=== PATIENT | female | born 1935 | race Caucasian/White ===

== ENCOUNTER → 2016-05-27 | Outpatient (CLI) | payer OTHER, MEDICARE ==
[~2016-05-27] MED LIST: CLC100X PO; SERT25TA PO; THIA100T13 PO
--- NOTE | 2016-05-27 14:54 | DIAGNOSTIC IMAGING REPORT ---
RIGHT FIRST TOE 3 VIEWS CLINICAL HISTORY: Right first toe injury and pain. COMPARISON STUDY: Right first toe 07/20/2015. FINDINGS: No acute fracture or dislocation within the right first toe. The bones are osteopenic. Faint band of sclerosis along the mid aspect of the distal phalanx of the first toe is consistent with an old, healed fracture. Mild soft tissue swelling within the first toe. IMPRESSION: Old, healed fracture within the distal phalanx of the right first toe. No acute fracture or dislocation. Electronically signed by: Yuriy Artis M.D. 05/27/2016 2:52 PM Dictated Date/Time: 05/27/2016 2:49 PM
--- NOTE | 2016-05-27 15:02 | DIAGNOSTIC IMAGING REPORT ---
LUMBAR SPINE 5 VIEWS CLINICAL HISTORY: Low back pain of several months duration. FINDINGS: Five views of the lumbar spine are compared to study dated 11/24/2015. The skeletal structures are osteopenic. There is a mild superior endplate compression deformity of L4. The degree of collapse is modestly increased from the 11/24/2015 examination. No large retropulsed fragments are seen. Vertebral body height is otherwise maintained throughout the lumbar spine. Alignment is preserved. Anterior osteophytes are seen throughout. The transverse and spinous processes are intact. There is no evidence of spondylolysis. Moderate to advanced facet arthropathy is present in the mid to lower lumbar spine. Moderate degenerative disc space narrowing is seen at L4-L5 and L5-S1. Mild disc space narrowing is seen at the remaining lumbar levels. The bony pelvis is intact as visualized. Mild sclerotic change is seen in the sacroiliac joints. There is a nonobstructed abdominal bowel gas pattern. The lung bases are clear as imaged. Atherosclerotic calcification is noted in the abdominal aorta. IMPRESSION: 1. No acute bony abnormality is seen involving the lumbosacral spine. 2. There is a mild superior endplate compression deformity of L4. The degree of collapse has modestly increased from the 11/24/2015 examination. No retropulsed fragments are identified. 3. Osteopenia and lumbosacral spondylosis as above. Dictated: 05/27/2016 2:47 PM Transcribed: 05/27/2016 3:01 PM [place] Electronically signed by: Kai Rojas M.D. 05/27/2016 3:42 PM Dictated Date/Time: 05/27/2016 2:47 PM
== END | disposition home or self-care (01) ==
LOC: C.RADBC 13:39
PROVIDERS: ATTEND Family Medicine
DX: M79.674 Pain in right toe(s) (principal); M54.32 Sciatica, left side; M47.897 Other spondylosis, lumbosacral region; M85.88 Other specified disorders of bone density and structure, other site; Z87.828 Personal history of other (healed) physical injury and trauma

== ENCOUNTER → 2016-08-08 | Outpatient (CLI) | payer OTHER, MEDICARE ==
--- NOTE | 2016-08-08 10:03 | DIAGNOSTIC IMAGING REPORT ---
LEFT HIP UNILATERAL 2 VIEWS CLINICAL HISTORY: Left hip pain. COMPARISON: Pelvis radiograph November 24, 2015. FINDINGS: Alignment of the left hip is anatomic. There is no acute fracture or suspicious lesion. There is no evidence for avascular necrosis within the left femoral head. Left hip joint space is preserved. There is mild osteophytosis of the left hip. There is extensive vascular calcification. IMPRESSION: 1. No acute fracture or dislocation of the left hip. 2. Mild left hip osteoarthritis. Electronically signed by: Mathieu Espinoza M.D. 08/08/2016 10:01 AM Dictated Date/Time: 08/08/2016 9:59 AM
== END | disposition home or self-care (01) ==
LOC: C.RADBC 09:36
PROVIDERS: ATTEND Family Medicine
DX: M16.12 Unilateral primary osteoarthritis, left hip (principal)

== ENCOUNTER → 2016-10-28 | Outpatient (CLI) | payer OTHER, MEDICARE ==
--- NOTE | 2016-10-28 11:58 | DIAGNOSTIC IMAGING REPORT ---
LEFT RIBS UNILATERAL WITH PA CHEST CLINICAL HISTORY: Left rib pain. COMPARISON STUDY: Chest and right rib 11/20/2015. FINDINGS: Multiple calcified granulomas within the right upper lobe. Surgical clips within the left upper mediastinum. Emphysema. No pleural effusions. No pneumothorax. The heart is normal in size. No new focal lung consolidations. Prior resection of the left lateral fifth rib consistent with thoracotomy changes. No acute rib fractures. IMPRESSION: No acute rib fractures. No pneumothorax. Electronically signed by: Yuriy Artis M.D. 10/28/2016 11:57 AM Dictated Date/Time: 10/28/2016 11:45 AM
== END | disposition home or self-care (01) ==
LOC: C.RAD 11:11
PROVIDERS: ATTEND Nurse Practitioner Family
DX: R07.81 Pleurodynia (principal)

== ENCOUNTER → 2017-08-06 | Outpatient (CLI) | payer OTHER, MEDICARE ==
[~2017-08-06] MED LIST changes: -THIA100T13 PO; +THIA100T14 PO
[2017-08-06 19:00] LABS: HEMATOCRIT 37.2 % (37-47); HEMOGLOBIN 12.4 g/dL (12.0-16.0); MEAN CELL VOLUME 93.2 fL (80-100); MEAN CORPUSCULAR HEMOGLOBIN 31.1 pg (25-34); MEAN CORPUSCULAR HGB CONC 33.3 g/dl (32-36); MEAN PLATELET VOLUME 8.9 fL (7.4-10.4); PLATELET COUNT 178 K/uL (130-400); RED CELL DISTRIBUTION WIDTH CV 13.4 % (11.5-14.5); RED CELL DISTRIBUTION WIDTH SD 45.6 fL (36.4-46.3)
[2017-08-06 19:18] LABS: ALBUMIN 3.7 gm/dl (3.4-5.0); ALT/SGPT 23 U/L (12-78); BLOOD UREA NITROGEN 32 mg/dl (7-18); CALCIUM 9.1 mg/dl (8.5-10.1); CARBON DIOXIDE 31 mmol/L (21-32); CREATININE 1.02 mg/dl (0.60-1.20); GLUCOSE 91 mg/dl (70-99); POTASSIUM 4.5 mmol/L (3.5-5.1); SODIUM 139 mmol/L (136-145)
[2017-08-06 19:23] LABS: ALKALINE PHOSPHATASE 66 U/L (45-117); AST/SGOT 29 U/L (15-37); TOTAL PROTEIN 7.6 gm/dl (6.4-8.2)
== END | disposition home or self-care (01) ==
LOC: C.LAB 17:31
PROVIDERS: ATTEND Family Medicine
DX: M79.606 Pain in leg, unspecified (principal)

== ENCOUNTER → 2017-08-14 | Outpatient (CLI) | payer OTHER, MEDICARE ==
--- NOTE | 2017-08-14 11:34 | DIAGNOSTIC IMAGING REPORT ---
RIGHT LOWER EXTREMITY VENOUS DOPPLER CLINICAL HISTORY: Right leg pain. COMPARISON STUDY: No previous studies for comparison. TECHNIQUE: Sonography of the deep venous system of the right lower extremity was performed. Compression and augmentation were evaluated. FINDINGS: The right common femoral, superficial femoral and popliteal veins were compressible. Augmentation was normal. Flow was shown within the deep calf vessels. IMPRESSION: No evidence of deep venous thrombus within the right lower extremity. Electronically signed by: Mathieu Espinoza M.D. 08/14/2017 11:33 AM Dictated Date/Time: 08/14/2017 11:32 AM
== END | disposition home or self-care (01) ==
LOC: C.ULTR 10:59
PROVIDERS: ATTEND Family Medicine
DX: M79.606 Pain in leg, unspecified (principal)

== ENCOUNTER → 2017-09-23 | Outpatient (CLI) | payer OTHER, MEDICARE ==
--- NOTE | 2017-09-23 16:27 | DIAGNOSTIC IMAGING REPORT ---
LEFT TIBIA AND FIBULA 2 VIEWS CLINICAL HISTORY: Left leg pain. FINDINGS: AP and lateral views of the left tibia and fibula are obtained. No prior studies are available for comparison at the time of dictation. The skeletal structures are osteopenic. No fracture is seen. The knee and ankle joints are grossly maintained. Mild soft tissue edema is present in the calf. Scattered phleboliths are observed. There is atherosclerotic calcification of the regional arteries. IMPRESSION: Soft tissue swelling with no radiographic evidence of left tibial or fibular fracture. Electronically signed by: Kai Rojas M.D. 09/23/2017 4:26 PM Dictated Date/Time: 09/23/2017 4:25 PM
--- NOTE | 2017-09-23 16:29 | DIAGNOSTIC IMAGING REPORT ---
TWO VIEW CHEST CLINICAL HISTORY: Leg pain. FINDINGS: PA and lateral chest radiographs are compared to study dated 11/20/2015. The heart is mildly enlarged and there is atherosclerotic calcification of the thoracic aorta. The pulmonary vasculature is noncongested. Biapical scarring similar to previous, as are calcifications in the right upper lobe. Chronic interstitial thickening is unchanged. There is no airspace consolidation or pleural effusion. There is no pneumothorax. The skeletal structures are osteopenic. Degenerative change is seen throughout the thoracic spine. Surgical clips project over the left paratracheal region. IMPRESSION: 1. Cardiac enlargement with no acute cardiopulmonary abnormality. 2. Chronic parenchymal changes are similar to previous Electronically signed by: Kai Rojas M.D. 09/23/2017 4:28 PM Dictated Date/Time: 09/23/2017 4:26 PM
--- NOTE | 2017-09-23 16:47 | DIAGNOSTIC IMAGING REPORT ---
L KNEE 1 OR 2 VIEWS ROUTINE CLINICAL HISTORY: 82 years-old Female presenting with LT KNEE PAIN. TECHNIQUE: Frontal and lateral views of the left knee were obtained. COMPARISON: None. FINDINGS: Osteopenia suspected. No acute fracture or malalignment. No advanced degenerative change. Atherosclerosis. IMPRESSION: No acute osseous injury. Electronically signed by: Daniel Sexton M.D. 09/23/2017 4:46 PM Dictated Date/Time: 09/23/2017 4:45 PM
== END | disposition home or self-care (01) ==
LOC: C.RAD1850 15:45
PROVIDERS: ATTEND Family Medicine
DX: M25.572 Pain in left ankle and joints of left foot (principal); M25.562 Pain in left knee; W19.XXXA Unspecified fall, initial encounter; R07.81 Pleurodynia

== ENCOUNTER → 2017-11-20 | Outpatient (CLI) | payer OTHER, MEDICARE ==
[~2017-11-20] MED LIST changes: +DONE10TA12 PO; +NMN5 PO
== END | disposition home or self-care (01) ==
LOC: C.LABBC 09:13
PROVIDERS: ATTEND Psychiatry & Neurology Neurology
DX: G30.1 Alzheimer's disease with late onset (principal); F01.50 Vascular dementia, unspecified severity, without behavioral disturbance, psychotic disturbance, mood disturbance, and anxiety

== ENCOUNTER 2017-12-18 02:35 | Inpatient (IN) | payer OTHER, MEDICARE ==
[~2017-12-18] VITALS: Ht 154.9 cm; Wt 43.9 kg
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
[2017-12-18] MEDS ORDERED: NMN10 PO (03:37)
[2017-12-18] MEDS ORDERED: DONE10TA12 PO (03:37)
[2017-12-18] MEDS ORDERED: SERT50TA PO (03:38)
[2017-12-18 03:48] LABS: BASO % 0.4 %; BASO ABS # 0.02 K/uL (0-0.2); EOS % 1.3 %; EOS ABS # 0.06 K/uL (0-0.5); HEMATOCRIT 34.6 % (37-47); HEMOGLOBIN 11.6 g/dL (12.0-16.0); IG# 0.01 K/uL (0.00-0.02); LYMPH % 23.7 %; LYMPH ABS # 1.06 K/uL (1.2-3.4); MEAN CELL VOLUME 92.5 fL (80-100); MEAN CORPUSCULAR HGB CONC 33.5 g/dl (32-36); MEAN PLATELET VOLUME 8.7 fL (7.4-10.4); MONO % 8.9 %; NEUT % 65.5 %; NEUT ABS # 2.92 K/uL (1.4-6.5); PLATELET COUNT 183 K/uL (130-400); RED CELL DISTRIBUTION WIDTH CV 13.5 % (11.5-14.5); RED CELL DISTRIBUTION WIDTH SD 45.5 fL (36.4-46.3); WHITE BLOOD COUNT 4.47 K/uL (4.8-10.8)
[2017-12-18 04:34] LABS: ALBUMIN 3.7 gm/dl (3.4-5.0); ALKALINE PHOSPHATASE 98 U/L (45-117); ALT/SGPT 21 U/L (12-78); AST/SGOT 27 U/L (15-37); BLOOD UREA NITROGEN 20 mg/dl (7-18); CALCIUM 9.1 mg/dl (8.5-10.1); CARBON DIOXIDE 28 mmol/L (21-32); CREATININE 1.04 mg/dl (0.60-1.20); GLUCOSE 90 mg/dl (70-99); POTASSIUM 4.3 mmol/L (3.5-5.1); SODIUM 139 mmol/L (136-145); TOTAL PROTEIN 7.4 gm/dl (6.4-8.2)
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
[2017-12-18] MEDS ORDERED: ONDANSETRON INJ 2 MG/ML 2 ML VIAL IV PRN (05:45)
[2017-12-18] MEDS ORDERED: ACETAMINOPHEN 325 MG TAB PO PRN (05:45)
[2017-12-18] MEDS ORDERED: SODIUM CHLORIDE 0.9% 1000ML 1,000 ML IV SCH (05:45)
[2017-12-18] MEDS ORDERED: HALOPERIDOL LACTATE 5 MG/ML 1 ML VIAL IM PRN (06:00)
[2017-12-18 06:30] VITALS: BP 125/70; PULSE 57; O2SAT 99
--- NOTE | 2017-12-18 06:40 | DIAGNOSTIC IMAGING REPORT ---
CHEST ONE VIEW PORTABLE CLINICAL HISTORY: ams dyspnea COMPARISON STUDY: 11/04/2017 FINDINGS: Stable postoperative changes. Unchanged granulomatous changes right pulmonary apex. No focal infiltrate. Diaphragms smooth. IMPRESSION: Chronic change. No acute process. The above report was generated using voice recognition software. It may contain grammatical, syntax or spelling errors. Electronically signed by: Kana Mcghee M.D. 12/18/2017 6:39 AM Dictated Date/Time: 12/18/2017 6:38 AM
--- NOTE | 2017-12-18 06:49 | DIAGNOSTIC IMAGING REPORT ---
HEAD WITHOUT CONTRAST (CT) CT DOSE: 537.48 mGy.cm HISTORY: Mental status change change in [place] TECHNIQUE: Multiaxial CT images of the head were performed without the use of intravenous contrast. A dose lowering technique was utilized adhering to the principles of ALARA. Comparison: 11/04/2017 Findings: The paranasal sinuses and mastoid air cells are clear. The calvarium and skull base are intact. The ventricles and sulci are within normal limits. There is no mass, hematoma, midline shift, or acute infarct. Age-related atrophy and chronic small vessel change Impression: No acute intracranial abnormality. Age-related atrophy and chronic small vessel change The above report was generated using voice recognition software. It may contain grammatical, syntax or spelling errors. Electronically signed by: Kana Mcghee M.D. 12/18/2017 6:48 AM Dictated Date/Time: 12/18/2017 6:48 AM
[2017-12-18 07:14] VITALS: BP 135/72; PULSE 54; TEMP 36.2; O2SAT 99
[2017-12-18 07:35] LABS: INR 1.1 (0.9-1.1)
[2017-12-18] MEDS ORDERED: IV FLUIDS COMPLETED PRN (08:30)
[2017-12-18 08:43] VITALS: BP 135/72; PULSE 54; TEMP 36.2; O2SAT 99
[2017-12-18] MEDS: MEMANTINE 10 MG TAB PO SCH ×2 (10:21→20:13)
[2017-12-18] MEDS: DONEPEZIL HCL 10 MG TAB PO SCH (10:21)
[2017-12-18] MEDS: SERTRALINE HCL 50 MG TAB PO SCH (10:22)
[2017-12-18] MEDS: ENOXAPARIN 30 MG/0.3 ML SYR SQ SCH (10:23)
[2017-12-18 11:00] VITALS: Ht 154.9 cm; Wt 43.9 kg
[2017-12-18 15:10] VITALS: BP 147/76; PULSE 53; TEMP 36.4; O2SAT 97
--- NOTE | 2017-12-18 19:30 | Progress Note ---
Progress Note Date of Service Dec 18, 2017. Progress Note time - 1927 Spoke with pt's at bedside. He reports long-standing, progressive dementia for 7-8 years. He is hopeful she can be placed at [facility] in their memory unit. Her behavior has gotten quite severe at home and her sundowning is very bad on some nights. She no longer recognizes him. Eating has been fine although she drinks poorly. Patient resting comfortably in bed during my visit. exam - gen - NAD, a/o x 1 neck - no JVD mouth - MMM heart - RRR, s1, s2 lungs - CTA b/l abd - soft, NT ext - no edema A/P: 1. stop IVF. 2. risperdal 0.5mg scheduled at bedtime to help promote sleep and treat sundowning. 3. maintain sleep-wake cycle if possible. 4. avoid benzos and sedatives. 5. DVT proph w/ lovenox. 6. continue outpatient dementia meds. All blood work and labs relatively wnl. No signs/symptoms of infectious process. CT head w/o acute process. In light of dementia w/ behavioral disturbance and need for SNF placement --- In my clinical judgment this beneficiary meets acute admission criteria, established by [facility], that includes being hospitalized through two midnights. Luis Enrique Koroma MD
[2017-12-18] MEDS: RISPERIDONE ODT 0.5MG PO SCH (20:12)
[2017-12-18 23:58] VITALS: BP 117/68; PULSE 61; TEMP 36.8; O2SAT 97
[2017-12-19 00:28] VITALS: O2SAT 99
[2017-12-19 07:49] VITALS: BP 152/81; PULSE 80; TEMP 36.7; O2SAT 90
[2017-12-19] MEDS: SERTRALINE HCL 50 MG TAB PO SCH (08:27)
[2017-12-19] MEDS: MEMANTINE 10 MG TAB PO SCH ×2 (08:27→20:06)
[2017-12-19] MEDS: DONEPEZIL HCL 10 MG TAB PO SCH (08:28)
[2017-12-19] MEDS: THIAMINE HCL 100 MG TAB PO SCH (08:28)
[2017-12-19] MEDS: ENOXAPARIN 30 MG/0.3 ML SYR SQ SCH (08:28)
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
[2017-12-19 15:05] VITALS: BP 155/63; PULSE 64; TEMP 36.6; O2SAT 96
[2017-12-19] MEDS: RISPERIDONE ODT 0.5MG PO SCH (20:06)
[2017-12-19 22:46] VITALS: BP 126/78; PULSE 72; TEMP 36.7; O2SAT 95
[2017-12-20 01:15] VITALS: O2SAT 99
[2017-12-20 08:04] VITALS: BP 156/74; PULSE 66; TEMP 36.8; O2SAT 97
[2017-12-20] MEDS: DONEPEZIL HCL 10 MG TAB PO SCH (08:42)
[2017-12-20] MEDS: ENOXAPARIN 30 MG/0.3 ML SYR SQ SCH (08:43)
[2017-12-20] MEDS: SERTRALINE HCL 50 MG TAB PO SCH (08:43)
[2017-12-20] MEDS: MEMANTINE 10 MG TAB PO SCH ×2 (08:43→20:03)
[2017-12-20 15:45] VITALS: BP 98/63; PULSE 81; TEMP 36.1; O2SAT 98
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
[2017-12-20] MEDS: RISPERIDONE ODT 0.5MG PO SCH (20:03)
[2017-12-20 23:10] VITALS: BP 119/77; PULSE 70; TEMP 36.6; O2SAT 98
[2017-12-21 00:54] VITALS: O2SAT 99
[2017-12-21 07:02] LABS: HEMATOCRIT 35.4 % (37-47); HEMOGLOBIN 11.7 g/dL (12.0-16.0); MEAN CELL VOLUME 93.7 fL (80-100); MEAN CORPUSCULAR HGB CONC 33.1 g/dl (32-36); MEAN PLATELET VOLUME 8.7 fL (7.4-10.4); PLATELET COUNT 165 K/uL (130-400); RED CELL DISTRIBUTION WIDTH CV 13.8 % (11.5-14.5); RED CELL DISTRIBUTION WIDTH SD 47.7 fL (36.4-46.3); WHITE BLOOD COUNT 4.65 K/uL (4.8-10.8)
[2017-12-21 07:26] VITALS: BP 123/75; PULSE 59; TEMP 36.5; O2SAT 97
[2017-12-21] MEDS: MEMANTINE 10 MG TAB PO SCH (07:35)
[2017-12-21] MEDS: DONEPEZIL HCL 10 MG TAB PO SCH (07:35)
[2017-12-21] MEDS: SERTRALINE HCL 50 MG TAB PO SCH (07:36)
[2017-12-21] MEDS: THIAMINE HCL 100 MG TAB PO SCH (07:36)
[2017-12-21 07:39] LABS: CREATININE 0.97 mg/dl (0.60-1.20)
[2017-12-21] MEDS ORDERED: HEPARIN SOD 5000 UNIT/0.5 ML CARP SQ SCH (08:00)
[2017-12-21 08:30] VITALS: O2SAT 99
[2017-12-21 12:28] VITALS: BP 123/75; PULSE 59; TEMP 36.5; O2SAT 99
[2017-12-21] MEDS ORDERED: SERT50TA PO (13:47)
[2017-12-21] MEDS ORDERED: RSPODT5 PO (13:47)
--- NOTE | 2017-12-21 13:55 | Discharge Instructions ---
Discharge Instructions Date of Service Dec 21, 2017. Admission Reason for Admission: Confusion Discharge Discharge Diagnosis / Problem: dementia with behavioral disturbance/sundowning Discharge Goals Goal(s): Learn about illness, Diagnostic testing, Therapeutic intervention Activity Recommendations Activity Limitations: resume your previous activity . Instructions / Follow-Up Instructions / Follow-Up From Dr. Koroma - You were checked for infection, stroke, and other metabolic abnormalities that can cause confusion & sundowning. All of your blood work, urinalysis, and CAT scan of the head were normal/ negative. It is likely that the recent behavior troubles at home are coming from the dementia itself. You responded nicely to "risperdal" medication which was given all 3 nights while you were hospitalized. This medication is helping you rest, helping with your confusion, and you appear to be tolerating the medication well. Please take RISPERDAL 0.5mg by mouth at bedtime every night. If absolutely necessary you can take a second 0.5mg tablet for a total of 1mg at bedtime but I suspect the 0.5mg tablet by itself will work well. The pill is dissolvable - it can be placed on the tongue and it dissolves. It can also be dissolved in a small portion of applesauce, pudding, etc. and then taken by mouth. I would also recommend that you increase your zoloft (sertraline) to 75mg daily. I have provided you a new prescription for the higher dose (the new dose will be 1.5 tablets each day). Please follow-up with your family doctor within 1 week. Return to [facility] if - * you have fever over 100.5 degrees * you have worsening confusion despite taking your medication * there are severe behavioral troubles that can't be managed at home * any other concerns Current Hospital Diet Patient's current hospital diet: Regular Diet Discharge Diet Recommended Diet: Regular Diet Procedures Procedures Performed: CAT scan of the head - no evidence of stroke, bleeding, etc Pending Studies Studies pending at discharge: no Medical Emergencies . Who to Call and When: Medical Emergencies: If at any time you feel your situation is an emergency, please call 911 immediately. . Non-Emergent Contact Non-Emergency issues call your: Primary Care Provider Call Non-Emergent contact if: temperature is above 100.5, you have any medication questions . . "Provider Documentation" section prepared by Luis Enrique Koroma. .
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
== END 2017-12-21 15:45 | disposition home health service (06) | DRG 57 ==
LOC: EDBD 02:35 → C.EDA 02:35 → C.4E 05:34 → ENRESERV 06:01 → OBSVTOIN 16:20
PROVIDERS: ADMIT Internal Medicine; ATTEND Internal Medicine
DX: G30.9 Alzheimer's disease, unspecified (principal); F02.81 Dementia in other diseases classified elsewhere, unspecified severity, with behavioral disturbance; N18.4 Chronic kidney disease, stage 4 (severe); F32.9 Major depressive disorder, single episode, unspecified; D64.9 Anemia, unspecified; Z66 Do not resuscitate; Z79.899 Other long term (current) drug therapy